=== PATIENT | male | born 1950 | race Caucasian/White ===

== ENCOUNTER 2023-02-19 15:04 | Outpatient (CLI) | payer MEDICARE, OTHER | END 2023-02-19 15:05 | disposition home or self-care (01) | LOC: CSHCT 15:04 | PROVIDERS: ATTEND Internal Medicine | DX: R05.1 Acute cough (principal); J98.4 Other disorders of lung; J44.9 Chronic obstructive pulmonary disease, unspecified | CPT/HCPCS: 71250; 94060; 94664; 94726; 94729; 94760 ==

== ENCOUNTER 2023-10-28 14:55 | Outpatient (CLI) | payer MEDICARE, OTHER | END 2023-10-28 14:56 | disposition home or self-care (01) | LOC: CSHRAD 14:55 | PROVIDERS: ATTEND Student in an Organized Health Care Education/Training Program | DX: M79.644 Pain in right finger(s) (principal); M19.041 Primary osteoarthritis, right hand ==

== ENCOUNTER 2024-03-09 14:22 | Outpatient (CLI) | payer MEDICARE, OTHER | END 2024-03-09 14:23 | disposition home or self-care (01) | LOC: CSHULT 14:22 | PROVIDERS: ATTEND Psychiatry & Neurology Neurology | DX: G62.9 Polyneuropathy, unspecified (principal); R25.1 Tremor, unspecified; I70.203 Unspecified atherosclerosis of native arteries of extremities, bilateral legs | CPT/HCPCS: 93923 ==